=== PATIENT | female | born 1990 | race Caucasian/White ===

== ENCOUNTER 2020-07-16 04:22 | Outpatient (CLI) | payer OTHER, SELFPAY ==
[2020-07-16 15:03] LABS: Kit/Specimen SENT
[2020-07-16 15:10] LABS: Abs Immature Grans 0.04 10^3/uL (0.0-0.06); Absolute Basophil Count 0.03 10^3/uL (0.0-0.2); Absolute Eosinophil Count 0.06 10^3/uL (0.0-0.7); Absolute Lymphocyte Count 1.87 10^3/uL (1.2-3.4); Absolute Monocyte Count 0.62 10^3/uL (0.1-0.8); Absolute Neutrophil Count 7.11 10^3/uL (1.2-6.7); Basophils % 0.3; Eosinophils % 0.6; HCT 42.9 % (36.0-46.0); HGB 14.7 g/dL (11.2-15.7); Immature Grans % 0.4; Lymphocytes % 19.2; MCH 31.1 pg (27.0-33.0); MCHC 34.3 % (32.0-36.0); MCV 90.9 fL (80-95); MPV 11.8 fL (8.0-11.0); Monocytes % 6.4; Neutrophils % 73.1; Nucleated RBC 0 %; Platelet Count 226 10^3/uL (130-400); RBC 4.72 10^6/uL (3.93-5.22); RDW 12.3 % (11.7-14.6); RDW-SD 40.6 fL; WBC 9.73 10^3/uL (4.4-10.8)
[2020-07-16 16:17] LABS: TSH (W/Ref FT4) 1.84 uIU/mL (0.36-3.74)
[2020-07-17 09:20] LABS: Hepatitis B Surface Ag Negative (Negative)
[2020-07-17 10:08] LABS: Hepatitis C Ab w Rflx HCV PCR Negative (Negative)
[2020-07-17 10:22] LABS: HIV-1/2 Ag & Ab Screen Negative (Negative)
[2020-07-17 10:51] LABS: Rubella IgG Ab (UVM) Positive (See Note); Varicella IgG Antibody Positive (See Note)
[2020-07-18 12:57] LABS: Syphilis Total Ab w/Reflex Nonreactive (Nonreactive)
[2020-07-21 14:56] LABS: Chlamydia Result Negative (Negative); GC Result Negative (Negative)
== END 2020-07-16 04:23 | disposition home or self-care (01) ==
LOC: LBO 04:22
PROVIDERS: PCP Pediatrics; Visit Provider Advanced Practice Midwife
DX: Z34.91 Encounter for supervision of normal pregnancy, unspecified, first trimester (principal); Z11.4 Encounter for screening for human immunodeficiency virus [HIV]; Z11.59 Encounter for screening for other viral diseases; Z11.3 Encounter for screening for infections with a predominantly sexual mode of transmission; Z01.84 Encounter for antibody response examination
CPT/HCPCS: 36415; 86787; 86803; 86850; 86900; 86901; 87340; 87389; 87491; 87591; 84443; 85025; 86762; 86780

== ENCOUNTER 2020-07-16 22:03 | Outpatient (REF) | payer OTHER, SELFPAY ==
[2020-07-16 18:27] LABS: *AMPHETAMINES SCREEN URINE Negative (Negative); *BARBITURATES SCREEN URINE Negative (Negative); *BENZODIAZEPINES SCREEN URINE Negative (Negative); Cannabinoids THC Negative (Negative); Cocaine Screen,Urine Negative (Negative); METHADONE URINE SCREEN Negative (Negative); OPIATES URINE SCREEN Negative (Negative)
[2020-07-16 18:32] LABS: Tricyclic Antidepressants Negative (Negative)
[2020-07-22 06:18] LABS: Buprenorphine Negative ng/mL (Cutoff: 5.0); Norbuprenorphine Negative ng/mL (Cutoff: 2.5)
== END 2020-07-16 22:04 | disposition home or self-care (01) ==
LOC: LBN 22:03
PROVIDERS: Advanced Practice Midwife; PCP Pediatrics; Visit Provider Pediatrics
DX: Z34.91 Encounter for supervision of normal pregnancy, unspecified, first trimester (principal)
CPT/HCPCS: 80307; 87086